=== PATIENT | male | born 1980 | race African-American/Black ===

== ENCOUNTER 2022-08-07 09:10 | Emergency (ER) | payer OTHER ==
[2022-08-07] MEDS ORDERED: cloNIDine 0.1 MG TAB ONE (10:14)
[2022-08-07] MEDS ORDERED: HYDROcodone/Acetaminophen 10/325 mg Tablet ONE (10:15)
== END 2022-08-07 11:51 | disposition home or self-care (01) ==
LOC: CSHERS 09:10
DX: S40.012A Contusion of left shoulder, initial encounter (principal); S09.90XA Unspecified injury of head, initial encounter; I10 Essential (primary) hypertension; V43.52XA Car driver injured in collision with other type car in traffic accident, initial encounter
CPT/HCPCS: 70450

== ENCOUNTER 2023-02-20 16:20 | Emergency (ER) | payer OTHER ==
[2023-02-20] MEDS ORDERED: Lorazepam 2 MG/ML VIAL ONE (16:48)
[2023-02-20] MEDS ORDERED: fentaNYL 50 mcg/mL 1 mL Vial ONE (17:17)
[2023-02-20 17:42] LABS: Hemoglobin 14.1 g/dL (13.5-17.5); Mean Corpuscular HGB CONC 29.8 g/dL (32.0-36.0); Mean Corpuscular Hemoglobin 28.5 pg (27.0-33.0); Mean Corpuscular Volume 95.6 fl (81.2-95.1); Mean Platelet Volume 10.1 fl (7.4-10.4); Platelet Count 286 10x3/uL (150-450); RBC Distribution Width 12.8 % (11.5-14.5); Red Blood Cell (RBC) Count 4.95 10x6/uL (4.32-5.72); White Blood Cell (WBC) Count 10.8 10x3/uL (3.5-10.5)
[2023-02-20 17:51] LABS: PTT 30.7 sec (22.0-33.0); Prothrombin Time 11.2 sec (9.5-12.1)
[2023-02-20 17:52] LABS: ALT (SGPT) 43 U/L (8-55); AST (SGOT) 51 U/L (5-34); Albumin 4.1 g/dL (3.5-5.0); Alkaline Phosphatase 77 U/L (40-110); Anion Gap 29 mmol/L (10-20); BUN (Urea Nitrogen) 24 mg/dL (8.9-20.6); Bilirubin, Total 0.2 mg/dL (0.2-1.2); Calc. Creatinine Clearance 0 mL/min (70-130); Calcium 8.9 mg/dL (7.8-10.44); Carbon Dioxide 10 mmol/L (22-29); Chloride 105 mmol/L (98-107); Estimated GFR 25; Globulin 3.8 g/dL (2.4-3.5); Glucose 205 mg/dL (70-105); Potassium 3.4 mmol/L (3.5-5.1); Protein, Total 7.9 g/dL (6.0-8.3); Sodium 141 mmol/L (136-145)
[2023-02-20 17:59] LABS: Acetaminophen Less than 10 mcg/mL (10.0-30.0); Alcohol Less than 10.0 mg/dL (Less than 10); Salicylate Less than 8.0 mg/dL (15.0-30.0)
[2023-02-20 18:02] LABS: MDiff Complete? YES
[2023-02-20 18:05] LABS: Band 1 % (5-11); Eosinophils 2 % (0-10); Lymphocytes 58 % (21-51); Monocytes 5 % (0-10); Neutrophil 33 % (42-75)
[2023-02-20] MEDS ORDERED: PROPOFOL 0 ML ONE (18:07)
[2023-02-20] MEDS ORDERED: niCARdipine 25 MG/10 ML SDV ONE (18:07)
[2023-02-20 18:08] LABS: Platelet Adequacy Comment Appears Adequate; RBC Morph Comment Within Normal Limits
[2023-02-20] MEDS ORDERED: Propofol 1,000 MG/100 ML VIAL IV ONE (18:08)
[2023-02-20 18:19] LABS: Base Excess (BEa) -13.6 mEq/L (-2.0 to +3.0); CO2 Tension 77.2 mmHg (35.0-45.0); Calcium, Ionized (arterial) 1.22 mmol/L (1.12-1.30); Carboxyhemoglobin (COHb) 1.4 gm% (0.0-3.0); Hematocrit-ABG 44 % (42.0-52.0); Hemoglobin (Hb) 14.9 g/dL (14.0-18.0); O2 Tension (PaO2), arterial 74.8 mmHg (80.0-100.0); Potassium - ABG Lab 4.12 mmol/L (3.70-5.30); Puncture Site LRA; RapidComm Collect By CP.VR1; pH, Arterial 7.008 (7.35-7.45)
[2023-02-20 18:46] LABS: Amphetamine Not Detected (NotDetected); Barbiturates Screen Not Detected (NotDetected); Benzodiazepine Screen Not Detected (NotDetected); Cocaine Metabolite Screen Not Detected (NotDetected); Methadone Not Detected (NotDetected); Methamphetamine Not Detected (NotDetected); Opiate Screen Not Detected (NotDetected); Oxycodone Screen Not Detected (NotDetected); Phencyclidine (PCP) Not Detected (NotDetected); THC/Cannabinoid Screen Not Detected (NotDetected); Tricyclic Screen Not Detected (NotDetected)
[2023-02-20] MEDS ORDERED: Labetalol HCl 100 MG/20 ML VIAL ONE (18:49)
[2023-02-20] MEDS ORDERED: levETIRAcetam 500 MG/5 ML VIAL ONE (18:51)
[2023-02-20] MEDS ORDERED: Rocuronium Bromide 50 MG/5 ML VIAL ONE (19:00)
[2023-02-20 19:55] LABS: Actual Bicarbonate (HCO3a) 19.8 mEq/L (22-28); Base Excess (BEa) -10.5 mEq/L (-2.0 to +3.0); CO2 Tension 62.7 mmHg (35.0-45.0); Calcium, Ionized (arterial) 1.21 mmol/L (1.12-1.30); Hematocrit-ABG 45 % (42.0-52.0); Hemoglobin (Hb) 15.4 g/dL (14.0-18.0); Potassium - ABG Lab 4.65 mmol/L (3.70-5.30); Puncture Site RRA; pH, Arterial 7.117 (7.35-7.45)
[2023-02-20 19:57] LABS: ALV-art Gradient 559.625 mmHg (0-20)
[2023-02-20 20:03] LABS: SARS-CoV-2 NAA Rapid Test Not Detected (NotDetected)
== END 2023-02-20 20:32 | disposition short-term general hospital (02) ==
LOC: CSHERS 16:20
DX: I62.9 Nontraumatic intracranial hemorrhage, unspecified (principal); J96.90 Respiratory failure, unspecified, unspecified whether with hypoxia or hypercapnia; R56.9 Unspecified convulsions; I10 Essential (primary) hypertension; F17.210 Nicotine dependence, cigarettes, uncomplicated; Z20.822 Contact with and (suspected) exposure to COVID-19
CPT/HCPCS: 31500; 36415; 36416; 36600; 51702; 70450; 71045; 80053; 80306; 80307; 82805; 83605; 84484; 85025; 85610; 85730; 92950; 93005; 93010; 94002; 94760; 96365; 96366; 96368; 96372; 96375; 96376; 99292; J1953; J2060; J2704; J3010

== ENCOUNTER 2023-05-06 10:21 | Emergency (ER) | payer OTHER, SELFPAY | END 2023-05-06 12:12 | disposition left against medical advice (07) | LOC: CSHERS 10:21 | DX: I10 Essential (primary) hypertension (principal); F17.210 Nicotine dependence, cigarettes, uncomplicated | CPT/HCPCS: 99283 ==